=== PATIENT | female | born 1945 | race Caucasian/White ===

== ENCOUNTER → 2017-04-20 | Outpatient (CLI) | payer MEDICARE ==
[~2017-04-20] MED LIST: GADOBUTROL 7.5 MMOL/7.5 ML PFS ONE
== END | disposition home or self-care (01) ==
LOC: CFH 14:57
PROVIDERS: ATTEND Otolaryngology
DX: R90.82 White matter disease, unspecified (principal)
CPT/HCPCS: 70553; 82565; A9585

== ENCOUNTER 2017-06-25 09:50 | Emergency (ER) | payer MEDICARE ==
[~2017-06-25] VITALS: Ht 154.9 cm; Wt 65.3 kg
[2017-06-25 09:51] VITALS: BP 153/74
[2017-06-25] MEDS ORDERED: SODIUM CHLORIDE 0.9% 1,000 ML IV ONE (10:18)
[2017-06-25] MEDS ORDERED: MORPHINE SULFATE 4 MG/ML, 1ML IVPush PRN (10:30)
[2017-06-25] MEDS ORDERED: SODIUM CHLORIDE 0.9% 1,000ML IVBOLUS ONE (10:30)
[2017-06-25] MEDS ORDERED: ONDANSETRON 2MG/ML, 2ML IVPush ONE (10:30)
[2017-06-25 10:40] LABS: HEMATOCRIT 40.8 % (34.6-47.8); WHITE BLOOD COUNT 5.8 x10^3/uL (3.4-10)
[2017-06-25] MEDS ORDERED: ONDANSETRON 2MG/ML, 2ML ONE (10:49)
[2017-06-25 10:52] LABS: BLOOD UREA NITROGEN 14 mg/dL (7-18)
== END 2017-06-25 11:53 | disposition home or self-care (01) ==
LOC: ED 10:46
DX: R11.2 Nausea with vomiting, unspecified (principal); H65.03 Acute serous otitis media, bilateral; I10 Essential (primary) hypertension; E78.00 Pure hypercholesterolemia, unspecified; I25.10 Atherosclerotic heart disease of native coronary artery without angina pectoris
CPT/HCPCS: 36415; 80048; 81001; 82040; 85025; 87077; 87086; 96361; 96374; 99284; J2405; J7030; 87186

== ENCOUNTER → 2017-10-14 | Outpatient (CLI) | payer MEDICARE | END | disposition home or self-care (01) | LOC: CFH 12:14 | PROVIDERS: ATTEND Student in an Organized Health Care Education/Training Program | DX: M48.07 Spinal stenosis, lumbosacral region (principal); M51.26 Other intervertebral disc displacement, lumbar region; M41.86 Other forms of scoliosis, lumbar region | CPT/HCPCS: 72148 ==

== ENCOUNTER → 2019-02-17 | Outpatient (CLI) | payer MEDICARE | END | disposition home or self-care (01) | LOC: CFH 10:12 | PROVIDERS: ATTEND Registered Nurse Registered Nurse First Assistant | DX: M48.061 Spinal stenosis, lumbar region without neurogenic claudication (principal); M47.816 Spondylosis without myelopathy or radiculopathy, lumbar region; M51.36 Other intervertebral disc degeneration, lumbar region | CPT/HCPCS: 72082; 72110; 72148 ==

== ENCOUNTER → 2019-10-04 | Outpatient (CLI) | payer MEDICARE | END | disposition home or self-care (01) | LOC: RAD 13:51 | PROVIDERS: ATTEND Student in an Organized Health Care Education/Training Program | DX: M47.817 Spondylosis without myelopathy or radiculopathy, lumbosacral region (principal); M48.07 Spinal stenosis, lumbosacral region; M51.36 Other intervertebral disc degeneration, lumbar region; M41.86 Other forms of scoliosis, lumbar region | CPT/HCPCS: 72148 ==